=== PATIENT | female | born 1935 | race Caucasian/White ===

== ENCOUNTER 2019-05-19 13:46 | Emergency (ER) | payer OTHER ==
[2019-05-19 13:57] VITALS: BP 126/54; PULSE 71; TEMP 98.4; BMI 23.6
--- NOTE | 2019-05-19 14:06 | PDOC ---
History of Present Illness - General Chief Complaint: Allergic Reaction Stated Complaint: HAND SWELLING/PAIN Time Seen by Provider: 05/19/19 14:00 - History of Present Illness Initial Comments: 05/19/19 15:30 84 years old past medical history significant for CAD status post TX aspirin Plavix hypertension high cholesterol GERD anemia presents to the ED with possible ALLERGIC reaction after iron infusion. Patient states after returning home she began to experience slight nausea a pain which wrapped around her "diaphragm" no chest pain or shortness of breath and a swelling sensation to her hands. Symptoms lasted 10-15 minutes and gradually resolved Patient is adamant this did not feel like a chest pain but states he was more like a bandlike pain in her diaphragm which has since resolved. Past History - Past Medical History Allergies/Adverse Reactions: Allergies Allergy/AdvReac Type Severity Reaction Status Date / Time Penicillins Allergy Verified 05/19/19 13:47 Home Medications: Ambulatory Orders Amlodipine Besylate [Norvasc -] 2.5 mg PO DAILY 05/19/19 Aspirin [ASA -] 81 mg PO DAILY 05/19/19 Atorvastatin Ca [Lipitor] 80 mg PO HS 05/19/19 Clopidogrel Bisulfate [Plavix] 75 mg PO DAILY 05/19/19 Lisinopril [Zestril] 2.5 mg PO DAILY 05/19/19 Ranitidine [Zantac -] 150 mg PO DAILY 05/19/19 Asthma: Yes COPD: No CHF: No - Surgical History Cardiac Surgery: Yes (STENT) - Suicide/Smoking/Psychosocial Hx Smoking History: Never smoked Hx Alcohol Use: Yes (DAILY WINE) Drug/Substance Use Hx: No Review of Systems - Review of Systems Comments:: 05/19/19 15:31 ROS: A complete review of 10 out of 10 review of systems is taken and is negative apart from what is previously mentioned below and in the HPI. *Physical Exam - Vital Signs Last Vital Signs Temp Pulse Resp BP Pulse Ox 98.4 F 71 18 126/54 L 100 05/19/19 13:46 05/19/19 13:46 05/19/19 13:46 05/19/19 13:46 05/19/19 13:46 - Physical Exam Comments: 05/19/19 15:31 Vitals: Triage Vital signs reviewed General Appearance: no acute distress, well nourished well developed, Head: Atraumatic, Neck: Supple;No Nucal rigidity Chest Wall: Nontender Cardiac: Regular rate and rhythym, no murmurs, no rubs, no gallops, Lungs: Clear to auscultation bilateral, good air movement bilaterally, Abdomen: Soft, non distended, normal bowel sounds, non tender to palpation Extremities: Full range of motion to all extremities, no cyanosis, clubbing, or edema Skin: Warm and dry, no rashes or lesions, no rash, no petechiae Psych: normal mood, normal affect ED Treatment Course - LABORATORY CBC & Chemistry Diagram: 05/19/19 14:30 Medical Decision Making - Medical Decision Making 05/19/19 15:36 EKG performed at 1412 demonstrates normal sinus rhythm no ST elevations or T- wave inversions. Interpreted by me. 05/19/19 15:37 *DC/Admit/Observation/Transfer Diagnosis at time of Disposition: Allergic reaction Qualifiers: Encounter type: initial encounter Qualified Code(s): T78.40XA - Allergy, unspecified, initial encounter - Discharge Dispostion Disposition: HOME Condition at time of disposition: Stable Decision to Admit order: No - Referrals Referrals: Alejandro Berry [Primary Care Provider] - - Patient Instructions Printed Discharge Instructions: DI for Adverse Drug Reaction -- Allergic Additional Instructions: Return to nearest emergency department for any severe returning symptoms or for any concerns. Otherwise follow-up with her doctor this week. - Post Discharge Activity
[2019-05-19 14:58] LABS: CALCIUM 8.7 mg/dl (8.5-10); POTASSIUM 4.6 mmol/L (3.5-5.1)
--- NOTE | 2019-05-20 12:08 | EKG ---
Test Reason : Blood Pressure : / mmHG Vent. Rate : 058 BPM Atrial Rate : 058 BPM P-R Int : 172 ms QRS Dur : 078 ms QT Int : 438 ms P-R-T Axes : 031 -61 067 degrees QTc Int : 429 ms SINUS BRADYCARDIA PULMONARY DISEASE PATTERN LEFT ANTERIOR FASCICULAR BLOCK ABNORMAL ECG NO PREVIOUS ECGS AVAILABLE Confirmed by Cristofer Peterson ([id number]) on 05/20/2019 12:08:32 PM Referred By: MD BAIN Confirmed By:Cristofer Peterson
== END 2019-05-19 15:52 | disposition home or self-care (01) ==
LOC: FER 13:46
DX: T78.40XA Allergy, unspecified, initial encounter (principal); Z95.5 Presence of coronary angioplasty implant and graft; J45.909 Unspecified asthma, uncomplicated; I10 Essential (primary) hypertension; E78.00 Pure hypercholesterolemia, unspecified; K21.9 Gastro-esophageal reflux disease without esophagitis
CPT/HCPCS: 36415; 80048; 84484; 93005; 99281-25